=== PATIENT | male | born 1995 | race Hispanic/Latino ===

== ENCOUNTER → 2019-07-29 | Outpatient (CLI) | payer MEDICAID, OTHER | END | disposition home or self-care (01) | LOC: RAH 08:45 | PROVIDERS: ATTEND Family Medicine | DX: R60.9 Edema, unspecified (principal) | CPT/HCPCS: 93970 ==

== ENCOUNTER → 2019-08-28 | Outpatient (CLI) | payer MEDICAID | END | disposition home or self-care (01) | LOC: RAH 10:33 | PROVIDERS: ATTEND Family Medicine | DX: R60.9 Edema, unspecified (principal); M79.609 Pain in unspecified limb | CPT/HCPCS: 93925 ==

== ENCOUNTER → 2023-02-02 | Outpatient (CLI) | payer MEDICAID ==
[~2023-02-02] MED LIST: IOHEXOL 350 MG/ML 100ML INFUS..BTL IV ONE
== END | disposition home or self-care (01) ==
LOC: RAH 11:29
PROVIDERS: ATTEND Internal Medicine Gastroenterology
DX: K94.20 Gastrostomy complication, unspecified (principal); R10.33 Periumbilical pain
CPT/HCPCS: 74170; Q9967